=== PATIENT | female | born 1945 | race Caucasian/White ===

== ENCOUNTER → 2023-11-10 15:55 | Outpatient (BNVA) | payer MEDICARE, SELFPAY | PROVIDERS: Family Provider Family Medicine; PCP Family Medicine; Referring Provider Family Medicine; Visit Provider Internal Medicine Cardiovascular Disease | DX: R07.9 Chest pain, unspecified (principal); R06.02 Shortness of breath; I65.23 Occlusion and stenosis of bilateral carotid arteries; I35.0 Nonrheumatic aortic (valve) stenosis; I10 Essential (primary) hypertension; E78.5 Hyperlipidemia, unspecified; I45.5 Other specified heart block; R94.31 Abnormal electrocardiogram [ECG] [EKG] | CPT/HCPCS: 36415; 80048; 83880; 93005; 99204 ==

== ENCOUNTER 2023-11-18 12:52 | Outpatient (CLI) | payer MEDICARE, SELFPAY ==
--- NOTE | 2023-11-18 13:00 | USCV_ITS ---
Lily Lombardi Age: 77 Gender: F : 1945 Exam Date: 11/18/2023 13:06 Ordering Phys: Brook Shafer MD ([email or web address]) Technologist: [place] [facility] [place]: [place] Risk Factors: Previous Vascular Surgery: Right Brachial BP: / Left Brachial BP: / Right Left Velocity (cm/s) Spectral Plaque Velocity (cm/s) Spectral Plaque Syst/Diast Broadening Syst/Diast Broadening 91.70/ 17.60 Prox CCA 97.80 / 15.50 106.80/17.40 Mid CCA 86.50 / 16.30 92.90/ 13.40 Distal CCA 68.30 / 16.20 63.20/ 11.60 Prox ICA 69.00 / 15.00 69.10/ 20.50 Mid ICA 72.60 / 11.10 64.60/ 17.50 Distal ICA 58.60 / 8.30 82.30 ECA 101.00 0.70 ICA/CCA 1.10 Antegrade Vertebral Antegrade 29.00/ 10.00 cm/s 29.00/ 11.00 cm/s Tri Subclavian Tri 102.9 51.20 0 FINDINGS Intimal thickening in the common carotid arteries bilaterally. Minimal scattered plaques at the bifurcations and proximal ICA bilaterally Antegrade flow in the vertebral arteries bilaterally Normal Doppler velocities in the external carotid and subclavian arteries bilaterally CONCLUSIONS Minimal scattered plaques at the bifurcations and proximal ICA bilaterally, suggesting less than 50% stenosis Intimal thickening in the common carotid arteries bilaterally. No significant stenosis in the external carotid, vertebral or subclavian arteries, based on the above findings Dr Brook Shafer MD [facility] (Electronically Signed) Final Date: 19 Nov 2023 22:21 S
== END 2023-11-18 12:53 | disposition home or self-care (01) ==
LOC: RAD 12:54
PROVIDERS: Family Provider Family Medicine; PCP Family Medicine; Visit Provider Internal Medicine Cardiovascular Disease
DX: R42 Dizziness and giddiness (principal); I65.23 Occlusion and stenosis of bilateral carotid arteries
CPT/HCPCS: 93880